=== PATIENT | male | born 1950 | race Caucasian/White ===

== ENCOUNTER 2018-03-12 19:55 | Emergency (ER) | payer OTHER, MEDICARE ==
[~2018-03-12] VITALS: Ht 177.8 cm; Wt 132.0 kg
[~2018-03-12 19:55] MED LIST: ATORVASTATIN CA20 MG PO; GABAPENTIN300 MG PO; LANTUS SOL100 UNIT/1 SQ; LEVOTHYROXINE88 MCG PO; LISINOPRIL10 MG PO; MELOXICAM7.5 MG PO; METFORMIN HCL500 M2 PO
[2018-03-12] MEDS ORDERED: NORCO 5-325 TA1 EACH PO (22:49)
== END 2018-03-12 23:10 | disposition home or self-care (01) ==
LOC: ED 19:55
DX: S20.229A Contusion of unspecified back wall of thorax, initial encounter (principal); E11.9 Type 2 diabetes mellitus without complications; I10 Essential (primary) hypertension; Z87.891 Personal history of nicotine dependence; Z88.2 Allergy status to sulfonamides; Z79.4 Long term (current) use of insulin; Z79.899 Other long term (current) drug therapy; W17.89XA Other fall from one level to another, initial encounter
CPT/HCPCS: 70450; 71045; 71260; 72125; 80053; 82150; 82550; 83690; 85025; 86850; 86900; 86901; 96374; 96375; 99284; G0480; J2270; J2405; Q9967